=== PATIENT | male | born 1965 | race Hispanic/Latino ===

== ENCOUNTER 2017-09-07 16:16 | Emergency (ER) | payer OTHER ==
[~2017-09-07] VITALS: Ht 144.8 cm; Wt 59.0 kg
[2017-09-07 21:23] VITALS: BP 135/54
== END 2017-09-07 21:26 | disposition home or self-care (01) ==
LOC: ER 16:16
DX: M79.652 Pain in left thigh (principal); L03.116 Cellulitis of left lower limb; I10 Essential (primary) hypertension; F17.290 Nicotine dependence, other tobacco product, uncomplicated
CPT/HCPCS: 99282

== ENCOUNTER → 2025-01-21 | Day surgery (SDC) | payer OTHER ==
[~2025-01-21] MED LIST: GABAPENTIN600 MG; LIDOCAINE HCL 2% LOCAL INJ 5 ML SDV VIAL INJ ONE; LISINOPRIL10 MG PO; METFORMIN HCL500 MG PO; PROPOFOL IV EMULSION 10 MG/ML 20 ML VIAL ONE; TYLENOL325 MG PO; [UNRECOGNIZED DRUG - REMARK] SC
[2025-01-21] MEDS: LACTATED RINGER'S 1,000 ML ONE (08:23)
[2025-01-21 10:32] VITALS: TEMP 97.3
[2025-01-21 11:25] VITALS: BP 130/82; PULSE 65; RESP 16; O2SAT 98
== END | disposition home or self-care (01) ==
LOC: OR 07:03
PROVIDERS: ATTEND Internal Medicine Gastroenterology
DX: K74.60 Unspecified cirrhosis of liver (principal); I85.10 Secondary esophageal varices without bleeding; K44.9 Diaphragmatic hernia without obstruction or gangrene; K29.70 Gastritis, unspecified, without bleeding; K76.6 Portal hypertension; I86.4 Gastric varices; K21.9 Gastro-esophageal reflux disease without esophagitis; K92.0 Hematemesis; K59.00 Constipation, unspecified; K62.5 Hemorrhage of anus and rectum; D64.9 Anemia, unspecified; E83.51 Hypocalcemia; K80.20 Calculus of gallbladder without cholecystitis without obstruction; E11.9 Type 2 diabetes mellitus without complications; I10 Essential (primary) hypertension; E78.5 Hyperlipidemia, unspecified; F32.A Depression, unspecified; F17.210 Nicotine dependence, cigarettes, uncomplicated; Z86.19 Personal history of other infectious and parasitic diseases; Z79.84 Long term (current) use of oral hypoglycemic drugs; Z79.4 Long term (current) use of insulin; Z79.899 Other long term (current) drug therapy
CPT/HCPCS: 36415; 43244; 82948; J2003; J2704; J7121; 43255